=== PATIENT | female | born 1965 | race Native Hawaiian/Other Pacific Islander ===

== ENCOUNTER 2017-10-02 09:25 | Outpatient (CLI) | payer MEDICAID ==
--- NOTE | 2017-10-03 07:23 | Magnetic Resonance Report ---
MRI scan lumbar spine: History: Lumbar radiculopathy. Findings: Conus medullaris terminates at L1 with normal signal intensity. Normal lumbar lordosis. Normal pre-and paravertebral soft tissue. Normal height and signal intensity the vertebral bodies. Decrease in height and signal intensity of the L4-L5 and CV lowest disc level as L5-S1. L1-L2. Normal. L2-L3. Normal. L3-L4. Mild bilateral neural frontal narrowing and mild central canal spinal stenosis secondary to degenerative diffuse disc bulge and degenerative facet joint. L4-L5. Moderate to severe bilateral neural foramina narrowing and moderate central canal spinal stenosis secondary to degenerative diffuse disc bulge and degenerative facet joints and ligamenta flava hypertrophy. L5-S1. No neuroforamina or central canal spinal stenosis. Degenerative facet joint Impression: Multilevel neural foramina narrowing the central canal spinal stenosis as detailed above. No definite focal protrusion, extrusion or sequestration of disc
== END 2017-10-02 09:26 | disposition home or self-care (01) ==
LOC: MRI 09:25
PROVIDERS: ATTEND General Practice
DX: M48.061 Spinal stenosis, lumbar region without neurogenic claudication (principal); M51.16 Intervertebral disc disorders with radiculopathy, lumbar region
CPT/HCPCS: 72148